=== PATIENT | female | born 1965 | race Caucasian/White ===

== ENCOUNTER 2024-06-20 13:02 | Emergency (ER) | payer BC ==
--- NOTE | 2024-06-20 13:29 | ED ---
ENT HPI - General Chief complaint: ENT Stated complaint: Trouble swallowing Time Seen by Provider: 06/20/24 13:10 Source: patient, RN notes reviewed Mode of arrival: ambulatory Limitations: no limitations - History of Present Illness Initial comments: 59-year-old female presenting for esophageal foreign body sensation x 3 days. States Wednesday night she was eating steak, potatoes, and corn when she began to feel like the food got stuck in her throat. She attempted to vomit the food up but was unsuccessful. States she has not been able to tolerate food or water the past 3 days, and states every time she has any p.o. intake, she vomits. She is able to tolerate her own secretions. Denies difficulty breathing or swallowing. States she has had this sensation before however has always resolved on its own, however it is never lasted this long. She is a current smoker. No other significant health conditions. Denies history of esophageal strictures. States she has never had an endoscopy. - Related Data Allergies Allergy/AdvReac Type Severity Reaction Status Date / Time Penicillins Allergy Rash/Hives Verified 06/20/24 13:07 Review of Systems ROS Statement: Those systems with pertinent positive or pertinent negative responses have been documented in the HPI. ROS Other: All systems not noted in ROS Statement are negative. Past Medical History Past Medical History: No Reported History History of Any Multi-Drug Resistant Organisms: None Reported Past Surgical History: Orthopedic Surgery Past Psychological History: No Psychological Hx Reported Smoking Status: Current every day smoker, Vaper Past Alcohol Use History: Daily Past Drug Use History: Marijuana General Exam Limitations: no limitations General appearance: alert, in no apparent distress Head exam: Present: atraumatic, normocephalic, normal inspection, other (No tripoding, patient is tolerating secretions well) Eye exam: Present: normal appearance, PERRL, EOMI. Absent: scleral icterus, conjunctival injection, periorbital swelling ENT exam: Present: normal exam, mucous membranes moist Neck exam: Present: normal inspection. Absent: tenderness, meningismus, lymphadenopathy Respiratory exam: Present: normal lung sounds bilaterally. Absent: respiratory distress, wheezes, rales, rhonchi, stridor Cardiovascular Exam: Present: regular rate, normal rhythm, normal heart sounds. Absent: systolic murmur, diastolic murmur, rubs, gallop, clicks Neurological exam: Present: alert, oriented X3 Psychiatric exam: Present: normal affect, normal mood Skin exam: Present: warm, dry, intact, normal color. Absent: rash Course Vital Signs 06/20/24 13:04 Temperature 97.9 F Pulse Rate 78 Respiratory 16 Rate Blood Pressure 166/82 O2 Sat by Pulse 94 L Oximetry Medical Decision Making - Medical Decision Making Was pt. sent in by a medical professional or institution (, [facility], [employer], urgent care, hospital, or detention...) When possible be specific @ -No Did you speak to anyone other than the patient for history (EMS, parent, family, police, friend...)? What history was obtained from this source @ -No Did you review nursing and triage notes (agree or disagree)? Why? @ -I reviewed and agree with nursing and triage notes Were old charts reviewed (outside hosp., previous admission, EMS record, old EKG, old radiological studies, urgent care reports/EKG's, detention records)? Report findings @ -No old charts were reviewed Differential Diagnosis (chest pain, altered mental status, abdominal pain women, abdominal pain men, vaginal bleeding, weakness, fever, dyspnea, syncope, headache, dizziness, GI bleed, back pain, seizure, CVA, palpatations, mental health, musculoskeletal)? @ -Esophageal foreign body, food bolus, esophageal stricture, esophageal perforation EKG interpreted by me (3pts min.). @ -None X-rays interpreted by me (1pt min.). @ -Soft tissue neck x-ray reveals no acute foreign body visualized CT interpreted by me (1pt min.). @ -None done U/S interpreted by me (1pt. min.). @ -None done What testing was considered but not performed or refused? (CT, X-rays, U/S, labs)? Why? @ -None What meds were considered but not given or refused? Why? @ -None Did you discuss the management of the patient with other professionals (professionals i.e. [facility] Yeh, [employer], lab, RT, psych nurse, social work supervisor, dye range feeder, teacher, animal services officer, therapeutic case manager)? Give summary @ -No Was smoking cessation discussed for >3mins.? @ -No Was critical care preformed (if so, how long)? @ -No Were there social determinants of health that impacted care today? How? (Homelessness, low income, unemployed, alcoholism, drug addiction, transportation, low edu. Level, literacy, decrease access to med. care, [place] [facility], rehab)? @ -No Was there de-escalation of care discussed even if they declined (Discuss DNR or withdrawal of care, Hospice)? DNR status @ -No What co-morbidities impacted this encounter? (DM, HTN, Smoking, COPD, CAD, Cancer, CVA, ARF, Chemo, Hep., AIDS, mental health diagnosis, sleep apnea, morbid obesity)? @ -None Was patient admitted / discharged? Hospital course, mention meds given and route, prescriptions, significant lab abnormalities, going to OR and other pertinent info. @ -Discharge. 59-year-old female presenting for foreign body sensation in esophagus x 3 days. Tolerating secretions well. No tripoding. Patient is well appearing, no acute distress. No difficulty breathing or swallowing. I highly suspect there is a mild bony food bolus impaction without evidence of perforation or respiratory distress. Patient was provided with IV fluids, glucagon, Valium, and Reglan. Soft tissue neck x-ray reveals no acute foreign body visualized. Upon reevaluation, patient reports feeling as though food bolus has passed and was able to tolerate both liquids and solids. Patient can be safely discharged home with GI follow-up. Patient is agreeable to plan. Appropriate return precautions discussed. Case was discussed with my ED attending Dr. Calabrese. Undiagnosed new problem with uncertain prognosis? @ -No Drug Therapy requiring intensive monitoring for toxicity (Heparin, Nitro, Insulin, Cardizem)? @ -No Were any procedures done? @ -No Diagnosis/symptom? @ -Esophageal food bolus impaction Acute, or Chronic, or Acute on Chronic? @ -Acute Uncomplicated (without systemic symptoms) or Complicated (systemic symptoms)? @ -Uncomplicated Side effects of treatment? @ -No Exacerbation, Progression, or Severe Exacerbation? @ -No Poses a threat to life or bodily function? How? (Chest pain, [place], [place], pneumonia, PE, COPD, DKA, ARF, appy, cholecystitis, CVA, Diverticulitis, Homicidal, Suicidal, threat to staff... and all critical care pts) @ -No Disposition Clinical Impression: Foreign body sensation in throat Disposition: HOME SELF-CARE Condition: Stable Instructions (If sedation given, give patient instructions): Esophageal Foreign Body (ED) Additional Instructions: Follow-up with GI for further evaluation including possible endoscopy. Please return to the Emergency Department if symptoms worsen or any other concerns. Is patient prescribed a controlled substance at d/c from ED?: No Referrals: None,Stated [Primary Care Provider] - 1-2 days Juany Matta MD [STAFF PHYSICIAN] - 1-2 days Time of Disposition: 15:01
[2024-06-20] MEDS: METOCLOPRAMIDE 5 MG/ML 2 ML VIAL IVP STA (13:57)
[2024-06-20] MEDS: GLUCAGON 1 MG/ML VIAL IVP STA (13:58)
[2024-06-20] MEDS: SODIUM CHLORIDE 0.9% 1,000 ML IV STA (13:58)
--- NOTE | 2024-06-20 14:15 | XR ---
EXAMINATION TYPE: XR soft tissue neck DATE OF EXAM: 06/20/2024 1:53 PM COMPARISON: None CLINICAL INDICATION: Female, 59 years old with history of foreign body sensation in throat; [facility] TECHNIQUE: The soft tissues of the neck were imaged in frontal and lateral views. FINDINGS: The prevertebral soft tissues are unremarkable. There is no evidence of mass effect or trac heal deviation. No acute osseous abnormality demonstrated. No evidence of subglottic narrowing. Ath erosclerosis of the carotid systems. IMPRESSION: No significant abnormality identified within the soft tissues of the neck. [facility], , 06/20/2024 2:12 PM
[2024-06-20 15:14] VITALS: BP 146/73; PULSE 84; RESP 17; TEMP 98.1
== END 2024-06-20 15:14 | disposition home or self-care (01) ==
LOC: EC 13:02
DX: R09.A2 Foreign body sensation, throat (principal); F17.290 Nicotine dependence, other tobacco product, uncomplicated; Z88.0 Allergy status to penicillin; W44.F3XA Food entering into or through a natural orifice, initial encounter
CPT/HCPCS: 70360; 99283; 96374; 96375 ×2; 96361; J1610; J2765; J3360